=== PATIENT | female | born 1935 | race Caucasian/White ===

== ENCOUNTER 2016-12-29 11:20 | Emergency (ER) | payer MEDICARE, OTHER ==
[~2016-12-29 11:20] MED LIST: DILTIAZEM 24HR120 MG PO; DILTIAZEM 24HR240 MG PO; ELIQUIS 5 MG TAB5 MG PO; FLAGYL500 MG PO; METOPROLOL TART25 MG PO; PREMARIN0.3 MG PO; SOTALOL120 MG PO; SYNTHROID50 MCG PO; TEKTURNA150 MG PO; VITAMIN B-1000 MCG/M IM; VITAMIN D5000 UNIT SQ; ZOFRAN 4 MG TAB4 MG PO
[2016-12-29 14:54] LABS: HEMOGLOBIN 11.9 gm/dl (12.3-15.3); RED BLOOD COUNT 4.09 M/UL (4.00-5.10); WHITE BLOOD COUNT 11.6 K/UL (4.5-11.0)
== END 2016-12-29 16:58 | disposition home or self-care (01) ==
LOC: ER1 11:20
PROVIDERS: Specialist/Technologist Athletic Trainer
DX: I48.0 Paroxysmal atrial fibrillation (principal); I48.2 Chronic atrial fibrillation; R74.0 Nonspecific elevation of levels of transaminase and lactic acid dehydrogenase [LDH]; Z88.0 Allergy status to penicillin; Z88.2 Allergy status to sulfonamides; Z88.5 Allergy status to narcotic agent; Z79.01 Long term (current) use of anticoagulants; Z79.899 Other long term (current) drug therapy; Z90.49 Acquired absence of other specified parts of digestive tract; Z95.0 Presence of cardiac pacemaker
CPT/HCPCS: 36415; 71010; 80053; 82550; 82553; 83690; 83874; 84484; 85025; 93005; 96361; 96374; 99284; C9113; J7050

== ENCOUNTER 2017-01-05 17:05 | Emergency (ER) | payer MEDICARE, OTHER ==
[2017-01-05 18:34] LABS: HEMOGLOBIN 12.2 gm/dl (12.3-15.3); RED BLOOD COUNT 4.25 M/UL (4.00-5.10); WHITE BLOOD COUNT 17.4 K/UL (4.5-11.0)
[2017-01-05 18:56] LABS: BUN/CREATININE RATIO 20 (0-10)
[2017-01-06 08:59] LABS: ACINETOBACTER BAUMANNII Not Detected (Negative); CANDIDA ALBICANS Not Detected (Negative); CANDIDA KRUSEI Not Detected (Negative); CANDIDA TROPICALIS Not Detected (Negative); ENTEROCOCCUS Not Detected (Negative); ESCHERICHIA COLI Not Detected (Negative); HAEMOPHILUS INFLUENZAE Not Detected (Negative); KLEBSIELLA OXYTOCA Not Detected (Negative); KLEBSIELLA PNEUMONIAE Not Detected (Negative); KPC-CARBAPENEM-RESISTANCE GENE Not Detected (Negative); PROTEUS Not Detected (Negative); PSEUDOMONAS AERUGINOSA Not Detected (Negative); SERRATIA MARCESANS Not Detected (Negative); STAPHYLOCOCCUS Not Detected (Negative); STAPHYLOCOCCUS AUREUS Not Detected (Negative); STREP AGALACTIAE (GROUP B) Not Detected (Negative); STREP PYOGENES (GROUP A) Not Detected (Negative); STREPTOCOCCUS Not Detected (Negative); mecA (METHICILLIN RESIST GENE Not Detected (Negative); vanA/B (VANCOMYCIN RESIST GENE Not Detected (Negative)
== END 2017-01-06 01:29 | disposition short-term general hospital (02) ==
LOC: ER1 17:05
PROVIDERS: Emergency Medicine
DX: R65.10 Systemic inflammatory response syndrome (SIRS) of non-infectious origin without acute organ dysfunction (principal); K75.9 Inflammatory liver disease, unspecified; I10 Essential (primary) hypertension; Z90.49 Acquired absence of other specified parts of digestive tract; Z88.0 Allergy status to penicillin; Z88.5 Allergy status to narcotic agent; Z88.2 Allergy status to sulfonamides
CPT/HCPCS: 36415; 71275; 74022; 80053; 81001; 82550; 82553; 83605; 83690; 83874; 83880; 84484; 85025; 85610; 85730; 87040; 87077; 87086; 87150; 87186; 96361; 96365; 96367; 96375; 99285; J0696; J2270; J7050; Q9962

== ENCOUNTER 2017-01-16 17:28 | Inpatient (IN) | payer MEDICARE, OTHER ==
[~2017-01-16] VITALS: Ht 172.7 cm; Wt 75.8 kg
[2017-01-16 19:50] LABS: HEMOGLOBIN 11.8 gm/dl (12.3-15.3); RED BLOOD COUNT 4.11 M/UL (4.00-5.10); WHITE BLOOD COUNT 12.2 K/UL (4.5-11.0)
[2017-01-16 20:10] LABS: BUN/CREATININE RATIO 24 (0-10)
[2017-01-17 17:10] LABS: BUN/CREATININE RATIO 16 (0-10)
[2017-01-18 04:01] LABS: HEMOGLOBIN 11.1 gm/dl (12.3-15.3); RED BLOOD COUNT 3.86 M/UL (4.00-5.10); WHITE BLOOD COUNT 10.8 K/UL (4.5-11.0)
[2017-01-18 04:23] LABS: BUN/CREATININE RATIO 16 (0-10)
[2017-01-19 04:30] LABS: HEMOGLOBIN 11.3 gm/dl (12.3-15.3); RED BLOOD COUNT 3.97 M/UL (4.00-5.10); WHITE BLOOD COUNT 10.9 K/UL (4.5-11.0)
[2017-01-19 04:49] LABS: BUN/CREATININE RATIO 17 (0-10)
[2017-01-20 05:44] LABS: BUN/CREATININE RATIO 17 (0-10)
[2017-01-20] MEDS ORDERED: CORDARONE 200M200 MG PO ×2 (14:13→14:15)
[2017-01-20] MEDS ORDERED: DIGOXIN250 MCG PO (14:18)
[2017-01-20] MEDS ORDERED: LOSARTAN POTASS50 MG PO (14:19)
[2017-01-20] MEDS ORDERED: LOPRESSOR100 MG PO (14:47)
== END 2017-01-20 15:06 | disposition home or self-care (01) | DRG 308 ==
LOC: ER1 17:28 → ZEROF 21:30 → PROG CARE 01-17 15:49
PROVIDERS: Emergency Medicine; Internal Medicine; ADMIT Family Medicine
DX: I48.0 Paroxysmal atrial fibrillation (principal); I50.23 Acute on chronic systolic (congestive) heart failure; E78.5 Hyperlipidemia, unspecified; E03.9 Hypothyroidism, unspecified; I11.0 Hypertensive heart disease with heart failure; I42.0 Dilated cardiomyopathy; Z88.5 Allergy status to narcotic agent; Z88.0 Allergy status to penicillin; Z91.09 Other allergy status, other than to drugs and biological substances; Z79.01 Long term (current) use of anticoagulants; Z95.0 Presence of cardiac pacemaker; Z88.2 Allergy status to sulfonamides
CPT/HCPCS: ECHO; 36415; 71010; 80048; 80053; 80061; 80076; 80162; 82550; 82553; 82607; 83605; 83690; 83735; 83874; 83880; 84132; 84439; 84443; 84484; 85025; 85027; 85610; 85730; 93005; 93306; 96374; 96375; 99291; G0378; J1160; J1940

== ENCOUNTER 2017-02-04 14:13 | Inpatient (IN) | payer MEDICARE, OTHER ==
[~2017-02-04] VITALS: Ht 172.7 cm; Wt 74.4 kg
[~2017-02-04 14:13] MED LIST changes: +CORDARONE 200M200 MG PO; +DIGOXIN250 MCG PO; +LOPRESSOR100 MG PO; +LOSARTAN POTASS50 MG PO
[2017-02-04] MEDS ORDERED: PREMARIN0.3 MG PO (16:25)
[2017-02-04] MEDS ORDERED: PROTONIX20 MG PO (16:26)
[2017-02-04 17:25] LABS: HEMOGLOBIN 12.7 gm/dl (12.3-15.3); RED BLOOD COUNT 4.41 M/UL (4.00-5.10); WHITE BLOOD COUNT 11.3 K/UL (4.5-11.0)
[2017-02-04 17:43] LABS: BUN/CREATININE RATIO 20 (0-10)
[2017-02-05 06:37] LABS: RED BLOOD COUNT 4.22 M/UL (4.00-5.10); WHITE BLOOD COUNT 10.6 K/UL (4.5-11.0)
[2017-02-05 07:01] LABS: BUN/CREATININE RATIO 20 (0-10)
[2017-02-06 04:22] LABS: HEMOGLOBIN 11.5 gm/dl (12.3-15.3); RED BLOOD COUNT 3.97 M/UL (4.00-5.10); WHITE BLOOD COUNT 9.4 K/UL (4.5-11.0)
[2017-02-06 04:50] LABS: BUN/CREATININE RATIO 15 (0-10); GAMMA GLUTAMYL TRANSPEPTIDASE 15 U/L (7-64)
[2017-02-08 04:07] LABS: HEMOGLOBIN 11.4 gm/dl (12.3-15.3); RED BLOOD COUNT 3.87 M/UL (4.00-5.10); WHITE BLOOD COUNT 8.9 K/UL (4.5-11.0)
[2017-02-08 04:26] LABS: BUN/CREATININE RATIO 15 (0-10)
[2017-02-08] MEDS ORDERED: PROTONIX 40 MG40 M1 PO (10:01)
[2017-02-08] MEDS ORDERED: CARDIZEM CD180 MG PO (10:03)
== END 2017-02-08 10:55 | disposition home or self-care (01) | DRG 391 ==
LOC: M/S 14:13
PROVIDERS: Emergency Medicine; ADMIT Internal Medicine
DX: R11.0 Nausea (principal); I50.21 Acute systolic (congestive) heart failure; I42.0 Dilated cardiomyopathy; T46.0X5A Adverse effect of cardiac-stimulant glycosides and drugs of similar action, initial encounter; I10 Essential (primary) hypertension; E78.2 Mixed hyperlipidemia; E03.9 Hypothyroidism, unspecified; I48.0 Paroxysmal atrial fibrillation; K29.40 Chronic atrophic gastritis without bleeding; I34.0 Nonrheumatic mitral (valve) insufficiency; I36.1 Nonrheumatic tricuspid (valve) insufficiency; I27.2 Other secondary pulmonary hypertension; D72.829 Elevated white blood cell count, unspecified; E86.0 Dehydration; Z78.0 Asymptomatic menopausal state; Z95.0 Presence of cardiac pacemaker; Z79.01 Long term (current) use of anticoagulants; Z88.5 Allergy status to narcotic agent; Z88.0 Allergy status to penicillin; Z88.2 Allergy status to sulfonamides; Z79.899 Other long term (current) drug therapy; Z98.61 Coronary angioplasty status; Z90.710 Acquired absence of both cervix and uterus; Z82.49 Family history of ischemic heart disease and other diseases of the circulatory system
CPT/HCPCS: 36415; 80048; 80053; 80076; 80162; 82150; 82977; 83690; 83735; 84443; 85025; 85027; 93005; C9113; J1335; J1650; J2250; J2405; J2550; J3010; J7040; J7050

== ENCOUNTER → 2017-03-11 | Outpatient (CLI) | payer MEDICARE, OTHER ==
[~2017-03-11] MED LIST changes: +CARDIZEM CD180 MG PO; +PROTONIX 40 MG40 M1 PO; +PROTONIX20 MG PO
== END ==
LOC: ECHO 02-09 13:00
DX: I34.0 Nonrheumatic mitral (valve) insufficiency (principal); I11.0 Hypertensive heart disease with heart failure; I48.91 Unspecified atrial fibrillation; I07.1 Rheumatic tricuspid insufficiency; I35.2 Nonrheumatic aortic (valve) stenosis with insufficiency; I51.7 Cardiomegaly; I27.2 Other secondary pulmonary hypertension; Z87.898 Personal history of other specified conditions
CPT/HCPCS: ECHO; 93306

== ENCOUNTER → 2017-04-01 | Outpatient (CLI) | payer MEDICARE, OTHER | LOC: HEART 5 09:08 | DX: Z51.81 Encounter for therapeutic drug level monitoring (principal); Z79.899 Other long term (current) drug therapy | CPT/HCPCS: 94060; 94729 ==

== ENCOUNTER → 2021-02-04 | Outpatient (CLI) | payer MEDICARE, OTHER ==
[~2021-02-04] MED LIST changes: +ENTRESTO PO; +LASIX20 MG PO
== END | disposition home or self-care (01) ==
LOC: MO 12:41
DX: C91.10 Chronic lymphocytic leukemia of B-cell type not having achieved remission (principal); R53.82 Chronic fatigue, unspecified; M25.50 Pain in unspecified joint; G89.29 Other chronic pain; D72.829 Elevated white blood cell count, unspecified; Z90.710 Acquired absence of both cervix and uterus; Z79.890 Hormone replacement therapy; Z79.899 Other long term (current) drug therapy
CPT/HCPCS: 84550; G0463

== ENCOUNTER → 2021-08-06 | Outpatient (CLI) | payer MEDICARE, OTHER | LOC: LAB 12:10 | DX: R06.02 Shortness of breath (principal) | CPT/HCPCS: 36415; 85379 ==

== ENCOUNTER → 2021-09-18 | Outpatient (CLI) | payer MEDICARE, OTHER | LOC: MAMO 06-26 15:30 → EXRD 09-01 14:30 → MAMO 09:30 → EXRD 10:11 | DX: M81.0 Age-related osteoporosis without current pathological fracture (principal) | CPT/HCPCS: 77080 ==